=== PATIENT | female | born 1945 ===

== ENCOUNTER 2020-10-15 18:24 | Emergency (ER) | payer MEDICARE, OTHER ==
[~2020-10-15] VITALS: Ht 167.6 cm; Wt 77.1 kg
[2020-10-15] MEDS ORDERED: TIOT4MIS2 IH (18:49)
[2020-10-15] MEDS ORDERED: SIMV-46 PO (18:49)
[2020-10-15] MEDS ORDERED: HYDR-3976 PO (18:49)
[2020-10-15] MEDS ORDERED: FLUT1BLS4 IH (18:49)
[2020-10-15] MEDS ORDERED: METF-440 PO (18:49)
[2020-10-15] MEDS ORDERED: LOSA100T31 PO (18:49)
[2020-10-15] MEDS ORDERED: SERT50TA PO (18:49)
[2020-10-15] MEDS ORDERED: MORP15TA PO (18:49)
--- NOTE | 2020-10-15 18:52 | NUR ---
ER physician assessing patient at this time.
[2020-10-15 19:08] LABS: HEMATOCRIT 40.3 % (31.2-41.9); MEAN CORPUSCULAR HEMOGLOBIN 26.6 uug (24.7-32.8); MEAN CORPUSCULAR VOLUME 83.6 fL (75.5-95.3); PLATELET COUNT (AUTO) 353 K/uL (179-408)
[2020-10-15 19:14] LABS: CREATININE 0.8 mg/dL (0.6-1.3); POTASSIUM 3.7 mmol/L (3.5-5.1)
[2020-10-15 19:19] LABS: BILIRUBIN,DIRECT 0.1 mg/dL (0.0-0.2); BILIRUBIN,TOTAL 0.3 mg/dL (0.2-1.0); TOTAL PROTEIN, SERUM 8.1 g/dL (6.4-8.2)
[2020-10-15 19:39] LABS: *BILIRUBIN,URIN NEGATIVE (NEGATIVE); *CLARITY,URINE SLIGHTLY CLOUDY (CLEAR); *COLOR,URINE LIGHT YELLOW (YELLOW); *KETONES,URINE NEGATIVE (NEGATIVE); *UROBILINOGEN,URINE 0.2 E.U./dl (NORMAL); LEUKOCYTE ESTERASE ,URINE 2+ (NEGATIVE); NITRITE, URINE POSITIVE (NEGATIVE); UGLUCOSE NEGATIVE (NEGATIVE)
[2020-10-15 19:43] LABS: *BLOOD, URINE TRACE INTACT (NEGATIVE)
[2020-10-15 20:06] LABS: BACTERIA,URINE MODERATE /HPF (NONE SEEN); SQUAMOUS EPITHELIAL CELL,UR FEW /HPF (NONE SEEN); URINE AMORPHOUS URATE MANY /HPF; WBC,URINE 80-100 /HPF (0-3)
[2020-10-15] MEDS ORDERED: CEFTRIAXONE 1 G in IV DEXTROSE 5% 50 ML IV ONE (20:30)
[2020-10-15] MEDS ORDERED: GENTAMICIN SULFATE 20 MG/2 ML VIAL IV ONE (20:30)
[2020-10-15] MEDS ORDERED: CEFTRIAXONE /D5W 50ML IVPB **ER PYXIS IV ONE (20:44)
[2020-10-15] MEDS ORDERED: OXYCODONE/APAP 5-325 MG TABLET ONE (20:56)
[2020-10-15] MEDS ORDERED: GENTAMICIN SULFATE 80 MG/2 ML VIAL ONE (20:59)
[2020-10-15] MEDS ORDERED: OXYCODONE/APAP 5-325 MG TABLET PO ONE (21:00)
[2020-10-15] MEDS ORDERED: CEPH500C2 PO (22:18)
[2020-10-15] MEDS ORDERED: OXYC-128 PO (22:18)
--- NOTE | 2020-10-15 23:08 | NUR ---
Called [facility] for BLS transport to home, eta 2 hours ~0100.
--- NOTE | 2020-10-15 23:14 | NUR ---
Called [facility] for bls transport to patient's home, eta 0000.
--- NOTE | 2020-10-15 23:58 | NUR ---
IV removed. Catheter intact and site benign. Pressure and 4x4 gauze applied to site. No bleeding noted.
[2020-10-16 00:19] VITALS: BP 157/78
--- NOTE | 2020-10-16 00:19 | NUR ---
[facility] here to transport patient back to residence. All belongings with patient. Vitals stable.
== END 2020-10-16 00:25 | disposition home or self-care (01) ==
LOC: ER 18:24
DX: N39.0 Urinary tract infection, site not specified (principal); J45.909 Unspecified asthma, uncomplicated; E11.9 Type 2 diabetes mellitus without complications; R05 Cough; Z90.710 Acquired absence of both cervix and uterus; L89.319 Pressure ulcer of right buttock, unspecified stage; Z79.84 Long term (current) use of oral hypoglycemic drugs
CPT/HCPCS: 36415; 71045; 74018; 80048; 80076; 81001; 84443; 84484; 85025; 85651; 87040; 87077; 87086; 87186; 96365; 96367; 99284; J0696; J1580; 70030-TC; A4663